=== PATIENT | female | born 1985 | race Caucasian/White ===

== ENCOUNTER 2021-06-24 19:24 | Emergency (ER) | payer OTHER ==
[~2021-06-24] VITALS: Ht 167.6 cm; Wt 63.5 kg
[2021-06-24 19:37] VITALS: BP 140/91
[2021-06-24] MEDS ORDERED: FLEXERIL PO (19:51)
[2021-06-24] MEDS ORDERED: ZOFRAN ODT4 MG PO (19:51)
== END 2021-06-24 20:11 | disposition home or self-care (01) ==
LOC: M.ERS 19:24
DX: U07.1 COVID-19 (principal)